=== PATIENT | female | born 1945 | race Caucasian/White ===

== ENCOUNTER → 2019-04-21 09:39 | Outpatient (CLI) | payer MEDICARE, SELFPAY ==
--- NOTE | ~2019-04-21 | XR_ITS ---
XR lumbar spine 6V w bending 04/21/2019 10:21 Indication: Radiculopathy Procedure: 7 views lumbar spine Comparison: 06/15/2015 Findings: There is levoscoliosis. There is disc narrowing at all lumbar levels. There is degenerative anterolisthesis at L4-5. There is moderate multilevel facet hypertrophy. Levoscoliosis measures 28 d egrees centered at L3-4. No acute fracture or traumatic malalignment. There is atherosclerosis. Impression: 1: Moderate lumbar spondylosis with worsening levoscoliosis. Reviewed, dictated and finalized at location A. Impression: 1: Moderate lumbar spondylosis with worsening levoscoliosis.
--- NOTE | ~2019-04-21 | CT_ITS ---
EXAMINATION: CT lumbar spine wo con DATE: 04/21/2019 10:21 INDICATION: Lumbar radiculopathy. TECHNIQUE: Computed tomography (CT) of the lumbar spine was performed without intravenous contrast. A utomated exposure control and iterative reconstruction technique were employed. The dose-length produ ct was 902.25 mGy-cm. COMPARISON: CT lumbar spine 10/22/2016 FINDINGS: There is 24 degrees levoscoliosis of lumbar spine. There is 3 mm anterolisthesis of L1 on L 2, 3 mm retrolisthesis of L2 on L3 and L3 on L4, and 3 mm anterolisthesis of L4 on L5. Vertebral body heights are normal. There is moderately decreased disc height at L1-L2, severely decreased disc heig ht at L2-L3 and L3-L4, moderately decreased disc height at L4-L5, and severely decreased disc height at L5-S1. The following disc levels are specifically discussed: L1-L2: The disc is bulging. There is severe bilateral facet joint osteoarthritis. There is moderate r ight and mild left neural foraminal stenosis. There is moderate central canal stenosis. L2-L3: The disc is bulging. There is severe right and moderate left facet joint osteoarthritis. There is severe right and mild left neural foraminal stenosis. There is mild central canal stenosis. L3-L4: The disc is bulging. There is severe bilateral facet joint osteoarthritis. There is moderate r ight and mild left neural foraminal stenosis. There is mild central canal stenosis. L4-L5: The disc is bulging. There is severe bilateral facet joint osteoarthritis. There is moderate r ight and mild left neural foraminal stenosis. There is moderate central canal stenosis. L5-S1: The disc is bulging. There is severe bilateral facet joint osteoarthritis. There is mild bilat eral neural foraminal stenosis. There is mild central canal stenosis. IMPRESSION: 1. Severe lumbar spondylosis, stable from 10/22/2016. 2. Lumbar levoscoliosis. Reviewed, dictated and finalized at location A.
== END ==
PROVIDERS: PCP Nurse Practitioner; Visit Provider Physician Assistant Medical
DX: M47.26 Other spondylosis with radiculopathy, lumbar region (principal)
CPT/HCPCS: 72114; 72131

== ENCOUNTER 2019-08-24 01:00 | Outpatient (CLI) | payer MEDICARE, SELFPAY ==
[2019-08-24 18:41] LABS: SARS-CoV-2 RNA PCR Negative
== END 2019-08-24 01:01 | disposition home or self-care (01) ==
LOC: ANHCOVIDDT 01:00
PROVIDERS: PCP Nurse Practitioner; Visit Provider Internal Medicine Cardiovascular Disease
DX: Z01.812 Encounter for preprocedural laboratory examination (principal); Z11.59 Encounter for screening for other viral diseases
CPT/HCPCS: 87635; C9803; U0003

== ENCOUNTER 2019-08-26 05:51 | Day surgery (SDC) | payer MEDICARE, SELFPAY ==
--- NOTE | 2019-08-26 07:45 | SUR.PREOP ---
ARRIVES AMBULATORY TO [facility] FOR SCHEDULED PACEMAKER GENERATOR CHANGE OUT W/ DR. THAKUR. A&OX3 ON ARRIVAL, DENIES PAIN OR SOB. ORIENTED TO ROOM, PLAN OF CARE, PROCEDURE, MODERATE SEDATION TO BE USED. QUESTIONS ANSWERED. VOICED UNDERSTANDING OF ALL. IV STARTED, LABS SENT, VS OBTAINED, CONSENT SIGNED, SKIN PREP TO R. UPPER CHEST COMPLETED. WILL CONTINUE TO MONITOR.
[2019-08-26 08:00] VITALS: BMI 33.7
[2019-08-26 08:20] VITALS: BP 121/96; PULSE 69; RESP 14; TEMP 36.9; O2SAT 100
--- NOTE | 2019-08-26 08:27 | PM.IMHP ---
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 Also has hypertension, hyperlipidemia and chronic pain. Her pulse generator has reached CRUZITO and she is here for an elective generator change. Review of Systems Constitutional: Constitutional: Denies body ache(s), Denies chills and Denies lethargy ENT: Denies nasal congestion Cardiovascular: Cardiovascular: Denies chest pain, Denies leg edema and Reports palpitations (occ little flutters) Respiratory: Respiratory: Denies cough, Denies dyspnea and Denies dyspnea on exertion Gastrointestinal: Gastrointestinal: Denies abdominal pain Musculoskeletal: Musculoskeletal: Reports back pain Integumentary/Breasts: Skin/Breast: Denies rash Neurologic: Denies confusion Psychiatric: Psychiatric: Reports anxiety [facility] Past Medical History Medical History (Updated 08/26/19 @ 08:29 by Judi Degroot MD) Cardiac pacemaker in situ 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, generator change 2019 Chronic low back pain Essential (primary) hypertension Hematuria, unspecified Mixed hyperlipidemia Synovial cyst of popliteal space [Solomon], left knee Urticaria, unspecified Surgical History Surgical History History of tubal ligation Social History Social History Smoking status: Never smoker Alcohol intake: never Meds Home Medications and Allergies Home Medications Medication Instructions Recorded Confirmed Type diclofenac sodium 50 mg 50 mg PO BID 01/14/19 History tablet,delayed release fluticasone propionate 50 2 spray NASAL DAILY #9.9 ml 01/14/19 Rx mcg/actuation nasal spray,suspension morphine 15 mg immediate release 15 mg PO Q12H PRN tablet 01/14/19 History tablet omeprazole 20 mg tablet,delayed 20 mg PO BID #180 tablet 01/14/19 Rx release lisinopril 20 1 tablet PO DAILY #90 tablet 07/02/19 Rx mg-hydrochlorothiazide 25 mg tablet atorvastatin 20 mg tablet See Rx Instructions .ROUTE 07/14/19 Rx .COMPLEX #90 tablet Allergies Allergy/AdvReac Type Severity Reaction Status Date / Time hydrocodone Allergy Unknown Verified 06/27/18 11:08 prednisone Allergy Unknown Verified 01/19/15 13:30 Exam Const: General: comfortable and no acute distress HENMT: Mouth: Yes moist mucous membranes Eyes: EOM: EOMs intact bilaterally Neck: Neck: supple Thyroid: thyroid normal Resp: Effort & Inspection: normal respiratory effort Auscultation: clear to auscultation bilaterally Cardio: Rhythm: regular rhythm Heart sounds: no murmurs GI: Inspection: non-distended GI Palp: Yes Soft to palpation and No Tenderness to palpation present (GI) Skin: General skin exam: normal color and no rashes or lesions noted (Pacer site well-healed, left sided implant) Neuro: Speech: normal speech Motor exam (neuro): Normal motor muscle tone present throughout Extrem: Right lower extremity: edema (miild bilat LE edema) Psych: Affect: Anxious affect present H&P: Results Labs Labs: Reviewed Assessment and Plan Assessment and plan (1) Cardiac pacemaker in situ: Code(s): Z95.0 - Presence of cardiac pacemaker Status: Acute Assessment and Plan: Medtronic pacemaker 2008. Pulse generator has reached CRUZITO. Intermittent complete heart block, ventricularly paces only about 2% of the time. Reviewed generator change with patient, risks and complications. Risks include those of conscious sedation such as breathing problems, as well as allergic reactions infections, bleeding, low but present risk of need for lead revision and the accompanying risks. Patient desires to proceed.
[2019-08-26 08:35] LABS: Basophils Absolute Auto 0.1 K/mm3 (0.0-0.1); Basophils Percent Auto 0.6 % (0.2-1.2); Eosinophils Absolute Auto 0.2 K/mm3 (0-0.3); Eosinophils Percent Auto 2.9 % (0-4.4); Hematocrit 39.8 % (37.0-47.0); Hemoglobin 12.9 g/dL (12.0-15.0); Immature Granulocyte Absolute 0.04 K/mm3 (0.00-0.031); Immature Granulocyte Percent A 0.5 % (0-0.5); Lymphocytes Absolute Auto 2.16 K/mm3 (0.9-3.2); Lymphocytes Percent Auto 27.5 % (18.3-44.2); Mean Corpuscular HGB Conc 32.4 g/dl (32-36); Mean Corpuscular Hemoglobin 29.8 pg (26-34); Mean Corpuscular Volume 91.9 fl (80-100); Mean Platelet Volume 9.7 fl (7.4-10.4); Monocytes Absolute Auto 0.5 K/mm3 (0.1-0.6); Monocytes Percent Auto 6.8 % (2.6-8.5); Neutrophils Absolute Auto 4.8 K/mm3 (1.3-6.7); Neutrophils Percent Auto 61.7 % (45.5-73.1); Platelet Count Result 229 k/mm3 (150-375); Red Blood Count 4.33 M/mm3 (4.2-5.4); Red Cell Distribution Width 13.2 % (11.5-14.5); White Blood Count 7.9 K/mm3 (4.5-10.0)
--- NOTE | 2019-08-26 08:42 | P.SEDATION_ITS ---
Moderate Sedation Note-Pt Data Patient Data Diagnosis: Pacemaker for intermittent complete heart block, generator at CRUZITO, here for elective generator change Present Complaint: Pulse generator at CRUZITO Procedure to be performed/Plan: Conscious sedation Generator change Allergies Allergy/AdvReac Type Severity Reaction Status Date / Time hydrocodone Allergy Unknown Verified 06/27/18 11:08 prednisone Allergy Unknown Verified 01/19/15 13:30 Home Medications Medication Instructions Recorded Confirmed Type diclofenac sodium 50 mg 50 mg PO BID 01/14/19 History tablet,delayed release fluticasone propionate 50 2 spray NASAL DAILY #9.9 ml 01/14/19 Rx mcg/actuation nasal spray,suspension morphine 15 mg immediate release 15 mg PO Q12H PRN tablet 01/14/19 History tablet omeprazole 20 mg tablet,delayed 20 mg PO BID #180 tablet 01/14/19 Rx release lisinopril 20 1 tablet PO DAILY #90 tablet 07/02/19 Rx mg-hydrochlorothiazide 25 mg tablet atorvastatin 20 mg tablet See Rx Instructions .ROUTE 07/14/19 Rx .COMPLEX #90 tablet Sedation/Anesthesia: No previous sedation/anesthesia problems (including family history). [facility] Past Medical History Medical History (Updated 08/26/19 @ 08:29 by Judi Degroot MD) Cardiac pacemaker in situ 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, generator change 2019 Chronic low back pain Essential (primary) hypertension Hematuria, unspecified Mixed hyperlipidemia Synovial cyst of popliteal space [Solomon], left knee Urticaria, unspecified Surgical History Surgical History History of tubal ligation Social History Social History Smoking status: Never smoker Alcohol intake: never Mod Sed Physical Exam Physical Exam Pre Procedural Exam: Normal: Appearance, Eyes, Ears, Nose, Neck, Throat, Airway, Lungs, Heart Size, Heart Rate, Heart Rhythm, Neuro Exam, Abdomen, Liver and Sk in (Pacer incision is well healed) and Variation: Extremities (Mild lower ex tremity edema) Hours since solid foods: 12 Hours since liquid intake: 12 Internal Medicine - PN: Obj Da Labs CBC & Chem 7: 08/26/19 08:18 08/26/19 08:18 ASA Classification/Sedation ASA Classification/Sedation ASA Class: II Risks: Risks, benefits and alternatives explained and patient/family accepted plan for sedation. Patient re-evaluated immediately prior to sedation.
[2019-08-26 08:46] LABS: Prothrombin Time 12.4 Seconds (11.1-14.7)
[2019-08-26 08:53] LABS: Blood Urea Nitrogen 16 mg/dL (7-17); Carbon Dioxide 28 mmol/L (22-30); Chloride 105 mmol/L (98-107); Estimated Glomerular Filt Rate 55; Glucose 107 mg/dL (65-105); Potassium 3.7 mmol/L (3.4-5.0); Sodium 140 mmol/L (137-145)
--- NOTE | 2019-08-26 10:14 | ECG_ITS ---
Measurements Intervals [place] Rate: 64 P: 50 AR: 169 QRS: 1 QRSD: 90 T: 29 QT: 376 QTc: 389 Interpretive Statements SINUS RHYTHM LOW QRS VOLTAGE IN PRECORDIAL LEADS BORDERLINE T WAVE ABNORMALITY- ANTERIOR LEADS BORDERLINE ECG Electronically Signed On 08-26-2019 13:42:55 CDT by Johnathon Kirby D.O.
--- NOTE | 2019-08-26 10:20 | SUR.PHASEII ---
BEGIN PHASE II RECOVERY. RETURNS TO DEPLOYMENT TECHNICIAN 5 S/P PPM GENERATOR CHANGE W/ DR. THAKUR. PLACED ON MONITOR, REPOSITIONED FOR COMFORT. AWAKE, DROWSY. DENIES PAIN AT THIS TIME. GENERATOR CHANGE LOCATION R. UPPER CHEST. AQUACELL DRESSING C/D/I TO SITE. NO REDNESS, SWELLING OR BLEEDING NOTED. R. RADIAL PULSE STRONG. SENSATION AND MOVEMENT TO R. HAND WNL. MONITOR SR 60'S W/ OCCASIONAL APACING. VSS. WILL CONTINUE TO MONITOR.
--- NOTE | 2019-08-26 10:22 | P.OP_ITS ---
Procedure Note - Detailed Date of procedure: 08/26/19 Pre-op diagnosis: CRUZITO Pacemaker generator at CRUZITO Post-op diagnosis: same Procedure performed: Conscious sedation generator change Description of procedure: PROCEDURE: Conscious sedation Generator change UNDERLYING RHYTHM: NSR CONSCIOUS SEDATION: Assessment: The patient has no history of anesthesia problems. The oropharynx is clear. The patient was deemed to be a good candidate for conscious sedation. The patient had continuous hemodynamic and oximetric monitoring during the procedure. Start time: 935 Completion time: 10 10 Total conscious sedation time: 34 minutes Medications: Versed 3 mg, fentanyl 50 mcg IV push Trained observer: Sajan Ly RN Outcome: The patient tolerated the procedure well with no complications. PROCEDURE: After informed consent, the patient is brought to the microbiology lab technician and the right prepectoral area was prepped and draped in usual fashion. The patient was given a prophylactic antibiotic intravenously with. After conscious sedation as described above, the area was anesthetized with 1% lidocaine. A skin incision is made with the Plasma Blade and carried down to the pacing capsule which was also incised. Hemostasis is obtained using the Plasma Blade. The lead/s was/were freed from the underlying capsule and the pulse generator was delivered from the pocket. The lead/s was/were disconnected from the existing device and reconnected to the new device. A gentle tug could not remove it/them. The device and lead/s was/were interrogated and found to be functioning appropriately. The area was copiously irrigated with antibiotic- containing solution. The device was replaced in the pocket. The subcutaneous tissues were closed in a two-layer fashion with interrupted 2 0 Vicryl sutures and the skin was closed in a continuous fashion using 4 0 Vicryl. The area was cleansed, an Aquacel dressing applied. The patient tolerated the procedure well with no complications. Estimated blood loss was negligible. DEVICE INFORMATION: New pulse generator: Medtronic Piedra XT DR PERALTA, [id number], Serial # [id number] Existing Right atrial lead: Medtronic model # 059737, Serial # [id number] Existing right ventricular lead: Medtronic model # 5076-52, Serial # [id number] Explanted device: Medtronic ADDR01, Serial #[id number] THRESHOLD INFORMATION: Right atrial lead: P wave sensing 1.4 mV, impedance 380 Ohms, threshold 0.75 at 0.4 msec Right ventriclar lead: R wave sensing 3.8 mV, impedance 532 ohms, threshold 0.75 V at 0.4 msec PROGRAMMED PARAMETERS: AAI <=> DDD Implants: New pulse generator: Medtronic Piedra XT DR MRI, [id number], Serial # [id number] Existing Right atrial lead: Medtronic model # 476195, Serial # [id number] Existing right ventricular lead: Medtronic model # 5076-52, Serial # [id number] Anesthesia: local (and conscious sedation) Surgeon: Judi Degroot MD Estimated blood loss (mL): 10 Drains: No Packing: No Pathology: none sent Complications: No immediate complications Condition: stable Disposition: observation Findings: New pacemaker is MRI compatible.
[2019-08-26 10:25] VITALS: BP 117/59; PULSE 67; RESP 14; TEMP 36.6; O2SAT 99
[2019-08-26 10:40] VITALS: BP 107/69; PULSE 68; RESP 14; O2SAT 99
[2019-08-26 10:55] VITALS: BP 113/64; PULSE 62; RESP 14; O2SAT 99
[2019-08-26 11:10] VITALS: BP 104/69; PULSE 61; RESP 14; O2SAT 98
[2019-08-26 11:40] VITALS: BP 103/66; PULSE 65; RESP 16; O2SAT 99
--- NOTE | 2019-08-26 12:37 | SUR.PHASEII ---
DISCHARGE INSTRUCTIONS AND FOLLOW UP CARE GIVEN AND REVIEWED W/ PT. QUESTIONS ANSWERED. VOICES UNDERSTANDING OF ALL INSTRUCTIONS.
--- NOTE | 2019-08-26 12:40 | SUR.PHASEII ---
END PHASE II RECOVERY. DISCHARGED HOME, OUT VIA WC TO FRIEND'S WAITING CAR WITH ALL PERSONAL BELONGINGS AND DISCHARGE INSTRUCTIONS, NEW GENERATOR BOOKLET AND INFORMATION. R. UPPER CHEST DRESSING C/D/I. SITE WITHOUT REDNESS, SWELLING OR BLEEDING. VOICES NO C/O. NO DISTRESS NOTED.
== END 2019-08-26 12:40 | disposition home or self-care (01) ==
PROVIDERS: PCP Nurse Practitioner; Visit Provider Internal Medicine Cardiovascular Disease
PROC: 0JPT0PZ Removal of Cardiac Rhythm Related Device from Trunk Subcutaneous Tissue and Fascia, Open Approach (ICD-10-PCS; CPT 33228; principal; 2019-08-26 08:30)
DX: Z45.010 Encounter for checking and testing of cardiac pacemaker pulse generator [battery] (principal); I44.2 Atrioventricular block, complete; I10 Essential (primary) hypertension; E78.2 Mixed hyperlipidemia
CPT/HCPCS: 33213; 36415; 80048; 85025; 85610; C1785; J0690; J2250; J3010; J7040

== ENCOUNTER 2019-12-25 13:02 | Outpatient (NON) | payer MEDICARE, SELFPAY ==
[2019-12-26 13:19] LABS: SARS-CoV-2 RNA PCR Negative
== END 2019-12-25 13:03 ==
LOC: ANHCOVIDDT 13:05
PROVIDERS: PCP Internal Medicine; Visit Provider Internal Medicine
DX: Z20.828 Contact with and (suspected) exposure to other viral communicable diseases (principal); R68.89 Other general symptoms and signs
CPT/HCPCS: 87635; C9803; U0003

== ENCOUNTER → 2020-04-07 09:29 | Outpatient (CLI) | payer MEDICARE, SELFPAY ==
--- NOTE | ~2020-04-07 | CT_ITS ---
EXAMINATION: CT lumbar spine wo [facility] EXAM DATE: 04/07/2020 09:56 INDICATION: Lumbar radiculopathy TECHNIQUE: Spiral CT of the lumbar spine was performed without contrast. Axial, coronal and sagittal images were reviewed. The dose-length product (DLP) for this examination was 782.95 mGy-cm. The e xposure was tailored according to patient size (auto mA exposure control), and iterative reconstructi on (ASIR) was used as additional dose reduction technique. Comparison is made to prior examination fr 04/21/2019. FINDINGS: There is moderate mid lumbar levoscoliosis. There is about 1 cm right lateral subluxation L 2 on L3 and about 1 cm left lateral subluxation L3 on L4. There is 3 mm anterolisthesis L1 on L2 and L4 on L5, 2 mm retrolisthesis L3 on L4 and L4 on L5. There is severe disc disease L2-3 and L3-4, mode rate to severe at L4-5, moderate at L1-2 and L5-S1. There is no spondylolysis. There are no acute fra ctures identified. Sacroiliac joints are unremarkable. Partially imaged right renal fluid density les ion statistically most likely cyst. Mild sigmoid diverticulosis. Level by level evaluation: T12-L1: There is a mild diffuse disc bulge. Facet arthropathy: Moderate left, mild to moderate right. Neural foraminal stenosis: Mild left. Central canal stenosis: Mild. L1-L2: There is a moderate diffuse disc bulge. Facet arthropathy: Moderate to severe bilateral. Neural foraminal stenosis: Moderate left, mild to moderate right. Central canal stenosis: Moderate. L2-L3: There is a moderate to large diffuse disc bulge. Facet arthropathy: Severe right, moderate to severe left. Neural foraminal stenosis: Moderate to severe right, mild left. Central canal stenosis: Moderate. L3-L4: There is a moderate diffuse disc bulge. Facet arthropathy: Moderate to severe bilateral. Neural foraminal stenosis: Moderate right, mild to moderate left. Central canal stenosis: Mild to moderate. L4-L5: There is a moderate diffuse disc bulge. Facet arthropathy: Severe bilateral. . Ligamentum flavum enlargement. Neural foraminal stenosis: Moderate bilateral. Central canal stenosis: Moderate to severe. L5-S1: There is a moderate diffuse disc bulge. Facet arthropathy: Severe left, moderate right. Neural foraminal stenosis: Mild to moderate left, mild right. Central canal stenosis: Mild. Difficult to appreciate any significant change compared to last year. IMPRESSION: 1. Moderate lumbar levoscoliosis. 2. Advanced lumbar spondylosis. Reviewed, dictated and finalized at location B. CIATE PROPERTY MANAGER
== END ==
PROVIDERS: PCP Internal Medicine; Visit Provider Nurse Practitioner Adult Health
DX: M47.26 Other spondylosis with radiculopathy, lumbar region (principal)
CPT/HCPCS: 72131

== ENCOUNTER 2020-09-08 09:37 | Outpatient (CLI) | payer MEDICARE, SELFPAY ==
[2020-09-08 16:38] LABS: Alanine Aminotransferase 19 U/L (4-35); Albumin Level 3.8 g/dL (3.5-5.1); Alkaline Phosphatase 88 U/L (38-126); Anion Gap 7 mmol/L (8-16); Aspartate Amino Transferase 26 U/L (14-36); Bilirubin,Total 0.4 mg/dL (0.2-1.3); Blood Urea Nitrogen 16 mg/dL (7-17); Calcium 9.1 mg/dL (8.4-10.2); Carbon Dioxide 30 mmol/L (22-30); Chloride 105 mmol/L (98-107); Cholesterol 144 mg/dL (0-200); Estimated Glomerular Filt Rate 54; Glucose 104 mg/dL (65-110); HDL Direct 31 mg/dL; Potassium 4.2 mmol/L (3.4-5.0); Sodium 142 mmol/L (137-145); Triglycerides 144 mg/dL (<150)
[2020-09-08 16:49] LABS: LDL Cholesterol Direct 78 mg/dL
== END 2020-09-08 09:38 | disposition home or self-care (01) ==
LOC: ANHWCLAB 09:42
PROVIDERS: PCP Internal Medicine; Visit Provider Internal Medicine
DX: E78.5 Hyperlipidemia, unspecified (principal); I10 Essential (primary) hypertension; Z79.899 Other long term (current) drug therapy
CPT/HCPCS: 36415; 80053; 80061

== ENCOUNTER → 2020-09-15 09:34 | Outpatient (REF) | payer MEDICARE, SELFPAY | LOC: ANHLAB 09:34 | PROVIDERS: PCP Internal Medicine; Visit Provider Nurse Practitioner | DX: C44.1192 Basal cell carcinoma of skin of left lower eyelid, including canthus (principal) | CPT/HCPCS: 88305 ==

== ENCOUNTER → 2021-01-16 10:19 | Outpatient (REF) | payer MEDICARE, SELFPAY | LOC: ANHLAB 10:19 | PROVIDERS: PCP Internal Medicine; Visit Provider Nurse Practitioner | DX: C44.1192 Basal cell carcinoma of skin of left lower eyelid, including canthus (principal) | CPT/HCPCS: 88305; 88331 ==

== ENCOUNTER 2021-04-27 11:54 | Outpatient (CLI) | payer MEDICARE, SELFPAY ==
[2021-04-27 16:19] LABS: Alanine Aminotransferase 17 U/L (4-35); Albumin Level 4.1 g/dL (3.5-5.1); Alkaline Phosphatase 73 U/L (38-126); Anion Gap 6 mmol/L (8-16); Aspartate Amino Transferase 54 U/L (14-36); Bilirubin,Total 0.3 mg/dL (0.2-1.3); Blood Urea Nitrogen 17 mg/dL (7-17); Calcium 8.9 mg/dL (8.4-10.2); Carbon Dioxide 29 mmol/L (22-30); Chloride 102 mmol/L (98-107); Cholesterol 166 mg/dL (0-200); Estimated Glomerular Filt Rate > 60; Glucose 104 mg/dL (65-110); HDL Direct 28 mg/dL; Potassium 4.1 mmol/L (3.4-5.0); Sodium 137 mmol/L (137-145); Triglycerides 225 mg/dL (<150)
[2021-04-27 16:29] LABS: LDL Cholesterol Direct 84 mg/dL
== END 2021-04-27 11:55 | disposition home or self-care (01) ==
PROVIDERS: PCP Internal Medicine; Visit Provider Nurse Practitioner
DX: E78.5 Hyperlipidemia, unspecified (principal)
CPT/HCPCS: 36415; 80053; 80061

== ENCOUNTER → 2021-05-08 13:59 | Outpatient (CLI) | payer MEDICARE, SELFPAY ==
--- NOTE | ~2021-05-08 | CT_ITS ---
EXAMINATION: CT lumbar spine wo con DATE: 05/08/2021 14:30 INDICATION: Lumbar radiculopathy. TECHNIQUE: Computed tomography (CT) of the lumbar spine was performed without intravenous contrast. A utomated exposure control and iterative reconstruction technique were employed. The dose-length produ ct was 845.61 mGy-cm. COMPARISON: CT lumbar spine 04/07/2020 FINDINGS: There is 25 degrees levoscoliosis of lumbar spine. There is 3 mm anterolisthesis of L1 on L 2, 3 mm retrolisthesis of L2 on L3 and L3 on L4, and 3 mm anterolisthesis of L4 on L5 and L5 on S1. V ertebral body heights are normal. There is moderately decreased disc height at L1-L2, severely decrea sed disc height at L2-L3 and L3-L4, moderately decreased disc height at L4-L5, and severely decreased disc height at L5-S1 with endplate remodeling. The following disc levels are specifically discussed: L1-L2: The disc is bulging. There is severe bilateral facet joint osteoarthritis. There is mild bilat eral neural foraminal stenosis. There is mild central canal stenosis. L2-L3: The disc is bulging. There is severe bilateral facet joint osteoarthritis. There is moderate r ight and mild left neural foraminal stenosis. There is mild central canal stenosis. L3-L4: The disc is bulging. There is severe bilateral facet joint osteoarthritis. There is moderate r ight and mild left neural foraminal stenosis. There is mild central canal stenosis. L4-L5: The disc is bulging. There is severe bilateral facet joint osteoarthritis. There is mild bilat eral neural foraminal stenosis. There is mild central canal stenosis. L5-S1: The disc is bulging. There is severe bilateral facet joint osteoarthritis. There is mild bilat eral neural foraminal stenosis. There is mild central canal stenosis. IMPRESSION: 1. Severe lumbar spondylosis, stable from 04/07/2020. 2. Lumbar levoscoliosis. Reviewed, dictated and finalized at location A.
== END ==
PROVIDERS: Visit Provider Nurse Practitioner Adult Health
DX: M47.26 Other spondylosis with radiculopathy, lumbar region (principal)
CPT/HCPCS: 72131

== ENCOUNTER → 2021-10-05 11:37 | Outpatient (CLI) | payer MEDICARE, SELFPAY ==
--- NOTE | ~2021-10-05 | XR_ITS ---
EXAMINATION: XR hip BI 2V w AP pelvis DATE: 10/05/2021 11:57 INDICATION: Bilateral hip pain TECHNIQUE: AP view the pelvis and two views of each hip were obtained. COMPARISON: None. FINDINGS: Bone alignment is normal. There is no fracture. There is mild osteoarthritis of the hips. P hleboliths are noted in the pelvis. IMPRESSION: 1. Mild osteoarthritis of the hips. Reviewed, dictated and finalized at location B.
== END ==
PROVIDERS: PCP Internal Medicine; Visit Provider Nurse Practitioner Family
DX: M16.0 Bilateral primary osteoarthritis of hip (principal)
CPT/HCPCS: 73521

== ENCOUNTER 2023-01-28 13:22 | Outpatient (CLI) | payer MEDICARE, SELFPAY ==
--- NOTE | 2023-01-28 14:11 | ECG_ITS ---
Measurements Intervals [place] Rate: 78 P: 44 ID: [id number] QRS: -21 QRSD: 94 T: 67 QT: 341 QTc: 391 Interpretive Statements SINUS RHYTHM LOW QRS VOLTAGE IN PRECORDIAL LEADS [QRS DEFLECTION < 1.0 mV IN CHEST LEADS] ABNORMAL ECG COMPARED TO ECG 08/26/2019 12:22:32 NO SIGNIFICANT CHANGES Electronically Signed On 01-28-2023 17:25:11 TISSUE RECOVERY TECHNICIAN by Khurram Finley M.D.
== END 2023-01-28 13:23 | disposition home or self-care (01) ==
LOC: ANHLAB 13:46
PROVIDERS: PCP Nurse Practitioner; Visit Provider Anesthesiology
DX: K42.9 Umbilical hernia without obstruction or gangrene (principal); I10 Essential (primary) hypertension; Z01.818 Encounter for other preprocedural examination; R94.31 Abnormal electrocardiogram [ECG] [EKG]
CPT/HCPCS: 36415; 86850; 86900; 86901; 93005

== ENCOUNTER 2023-01-29 02:06 | Day surgery (SDC) | payer MEDICARE, SELFPAY ==
[2023-01-25 10:40] VITALS: BMI 33.7
--- NOTE | 2023-01-25 10:58 | PC.NURSE ---
PRE-OP INSTRUCTIONS, PLEASE READ CAREFULLY Report to the Outpatient Waiting Room, entrance under the green pavilion located off [facility], at time _0730_ on date _01/29/23_. Planned Procedure Time: _0930_. Time changes happen often and if your time is changed the preop area will call you the afternoon before. - You and your visitor will be asked to self-screen and do not enter if you have any COVID symptoms. - A mask is optional within the hospital at this time. Patients may have clear liquids (water, carbonated beverages, clear teas, apple juice) until 3 hours prior to surgery (0630 AM) with a maximum of 20 ounces. - No food from midnight until time of surgery Take the following medications with a SIP of water the morning of surgery: _NONE__ DO NOT STOP ANY OF YOUR OTHER PRESCRIPTION MEDICATIONS PRIOR TO SURGERY ?EXCEPT THE FOLLOWING Medications to discontinue _DICLOFENAC PER DR. VARGAS'S INSTRUCTIONS_ Date to take last dose Please no make-up, nail kyrgyz, hairspray, perfume, deodorant, or body powder the day of surgery. No jewelry (including any body piercings) or valuables the day of surgery, leave them at home. Please take a shower or bath the night before, or the morning of, surgery with an antibacterial soap (HIBICLENS). Wear comfortable, loose fitting clothing. - Jewelry must be removed prior to entering the operating room. Rings and piercings that are not removed may be cut off. - The hospital will not accept responsibility for valuables. - Please leave all valuables, including medications, at home the day of surgery. If you are going home after surgery, a licensed pickup driver must drive you home. - NO public transportation without another adult if you receive anesthesia. - We recommend that an adult stay with you for 24 hours following discharge. - We also recommend that you do not drive, make important decision, drink alcoholic beverages, or take any drugs that were not prescribed by your health care provider for at least 24 hours after your discharge time. Follow any additional instructions given to you from your surgeon. If you or anyone in your household have experienced Covid symptoms in the past week, please notify your surgeon or the nurse liaison at the phone number below for possible testing. Telephone instructions given to _PATIENT_and asked if any additional questions and then verbalized understanding. Patient advised to call surgeon office or pre surgery nurse liaison [phone] if any additional questions.
[2023-01-29] VITALS (12 sets, daily range): BP systolic 125–136; BP diastolic 61–78; PULSE 71–84; RESP 12–22; TEMP 35.7–36.9; O2SAT 93–100
[2023-01-29] MEDS: ACETAMINOPHEN 500 MG TABLET 1000 MG PO (08:15)
[2023-01-29] MEDS: KETOROLAC 15 MG/ML VIAL (*BKC) IV PUSH (08:15)
[2023-01-29] MEDS: LACTATED RINGERS 1,000 ML 30 ML IV CONT ×2 (08:15→11:18)
--- NOTE | 2023-01-29 09:07 | WPDANESEPPF ---
Anes - Initial Pre Proc Eval Procedure: Operation Date: 01/29/23 09:30 Proposed Procedures p Laparoscopic Umbilical Hernia Repair with Mesh, Davinci Assisted - Harrison Galvan DO Date/Time: 01/29/23 09:07 Surgeon: Harrison Galvan DO Pre Op Diagnosis: umbilical hernia Patient Data Age: 77 Gender: F Height: 1.6 m Weight: 87.6 kg Last Vital Signs Temp 35.7 C L 01/29/23 08:22 Pulse 71 01/29/23 08:22 Resp 14 01/29/23 08:22 BP 126/71 01/29/23 08:22 Pulse Ox 95 01/29/23 08:22 O2 Del Method Room Air 01/29/23 08:22 Allergies Allergy/AdvReac Type Severity Reaction Status Date / Time prednisone Allergy Unknown Unknown Verified 01/29/23 08:28 nitrofurantoin AdvReac Severe Abdominal Verified 01/29/23 08:28 Pain Home Medications Medication Instructions Recorded Confirmed Type atorvastatin 40 mg tablet 40 mg PO DAILY #90 tabs 01/30/22 01/25/23 Rx lisinopril 20 See Rx Instructions .Route 03/22/22 01/25/23 Rx mg-hydrochlorothiazide 25 mg tablet .COMPLEX #90 tabs diclofenac sodium 50 mg See Rx Instructions .Route 05/01/22 01/25/23 Rx tablet,delayed release .COMPLEX #180 tabs omeprazole 20 mg tablet,delayed 20 mg PO BID #180 tabs 09/18/22 01/25/23 Rx release fluticasone propionate 50 2 spray intranasal DAILY PRN 01/25/23 01/25/23 History mcg/actuation nasal Congestion spray,suspension Patient hx anesthesia problems: none Family hx anesthesia problems: none Results Review: All pre-operative results and documents have been reviewed as part of the pre-operative evaluation. 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, generator change 2019 Chronic low back pain Essential (primary) hypertension Hematuria, unspecified Mixed hyperlipidemia Synovial cyst of popliteal space [Solomon], left knee Urticaria, unspecified Surgical History Surgical History History of tubal ligation S/P placement of cardiac pacemaker Family History Family History Mother Family history of malignant neoplasm of breast in first degree relative Father Family history of heart disease in male family member before age 55 Social History Social History Smoking status: Never smoker Second hand tobacco smoke exposure: No Alcohol intake: never Substance use: never Substance use type: does not use Living arrangements: alone Spiritual care concerns: No Anes - Eval Final PreProcedure Day of Procedure 01/29/23 09:07 Patient weight: obese Heart: regular rate and rhythm Lungs: clear to auscultation Airway: Mallampati scale class III Neurological: alert and oriented Last oral intake: >/= 8 hours ASA classification: III Emergent: no Anesthetic plan: proceed Anesthesia type and monitoring: general ETT and standard monitoring Results Review: All pre-operative results and documents have been reviewed as part of the pre-operative evaluation. Informed Consent: The patient's anesthetic plan and its attendant risks and benefits were discussed with the patient/family/POA. Questions were solicited and answers provided to the satisfaction of the patient/family/POA.
--- NOTE | 2023-01-29 09:33 | PM.IMHP ---
H&P: HPI History of Present Illness Date/Time: 01/29/23 09:33 Chief Complaint: Umbilical hernia Narrative: This is a 77-year-old woman who presents for umbilical hernia repair. She denies any changes since last seen in the office. Review of Systems Review of Systems: All systems reviewed & are unremarkable except as noted in HPI and below Constitutional: Constitutional: Denies chills, Denies fever(s), Denies headache(s) and Denies weight loss Eyes: Eyes: Denies change in vision ENT: Denies dizziness, Denies headache(s), Denies neck mass and Denies throat swelling Cardiovascular: Cardiovascular: Denies chest pain, Denies lightheadedness and Denies dyspnea Respiratory: Respiratory: Denies cough, Denies dyspnea and Denies wheezing Gastrointestinal: Gastrointestinal: Denies abdominal pain, Denies change in bowel habits, Denies nausea and Denies vomiting Genitourinary: Genitourinary: Denies hematuria and Denies dysuria Musculoskeletal: Musculoskeletal: Reports as per HPI Integumentary/Breasts: Skin/Breast: Reports as per HPI Neurologic: Denies dizziness and Denies headache(s) Allergic/Immunologic: Allergic/Immunologic: Denies throat swelling and Denies wheezing PMFSH Past Medical History Medical History Cardiac pacemaker in situ 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, generator change 2019 Chronic low back pain Essential (primary) hypertension Hematuria, unspecified Mixed hyperlipidemia Synovial cyst of popliteal space [Solomon], left knee Urticaria, unspecified Surgical History Surgical History History of tubal ligation S/P placement of cardiac pacemaker Family History Family History Mother Family history of malignant neoplasm of breast in first degree relative Father Family history of heart disease in male family member before age 55 Social History Social History Smoking status: Never smoker Second hand tobacco smoke exposure: No Alcohol intake: never Substance use: never Substance use type: does not use Living arrangements: alone Spiritual care concerns: No Meds Home Medications and Allergies Home Medications Medication Instructions Recorded Confirmed Type atorvastatin 40 mg tablet 40 mg PO DAILY #90 tabs 01/30/22 01/25/23 Rx lisinopril 20 See Rx Instructions .Route 03/22/22 01/25/23 Rx mg-hydrochlorothiazide 25 mg tablet .COMPLEX #90 tabs diclofenac sodium 50 mg See Rx Instructions .Route 05/01/22 01/25/23 Rx tablet,delayed release .COMPLEX #180 tabs omeprazole 20 mg tablet,delayed 20 mg PO BID #180 tabs 09/18/22 01/25/23 Rx release fluticasone propionate 50 2 spray intranasal DAILY PRN 01/25/23 01/25/23 History mcg/actuation nasal Congestion spray,suspension Allergies Allergy/AdvReac Type Severity Reaction Status Date / Time prednisone Allergy Unknown Unknown Verified 01/29/23 08:28 nitrofurantoin AdvReac Severe Abdominal Verified 01/29/23 08:28 Pain Vital Signs Vital Signs - 24 hr 01/29/23 08:22 Temperature 35.7 C L Pulse Rate 71 Respiratory Rate 14 Blood Pressure 126/71 Pulse Oximetry 95 Oxygen Delivery Room Air Exam Const: General: no acute distress and alert Orientation/consciousness: patient oriented x3 HENMT: Head: normocephalic and atraumatic Ears: hearing grossly normal bilaterally Face/Nose/Sinus: Normal nares present Mouth: Yes Normal oral and palatal mucosa present Eyes: Periorbital: periorbital findings normal Sclera: sclerae normal EOM: EOMs intact bilaterally Neck: Neck: normal visual inspection, no lymphadenopathy and trachea midline Chest: Chest palpation & inspection: normal inspection of the chest Resp: Effort & Inspection: normal respiratory effort
--- NOTE | 2023-01-29 09:35 | WPDHPUPDATE1 ---
History and Physical Update Update Date/Time: 01/29/23 09:35 History and Physical has been reviewed, including an updated exam of the patient. There are NO changes in the patient's condition. Risks, benefits, and alternatives have been discussed and questions answered. Patient agrees to proceed with procedure.
[2023-01-29] MEDS: ceFAZolin 2 GM/D5W 50 ML 2 GM/50 ML BAG IVPB (09:54)
[2023-01-29] MEDS: BUPIVACAINE/EPINEPHRINE 0.5% 50 ML VIAL 30 ML INFILTRATE (09:54)
--- NOTE | 2023-01-29 11:11 | W.PM.PROC2 ---
Procedure Note - Detailed Date of Procedure 01/29/23 Pre-op Diagnosis umbilical hernia Post-op Diagnosis Same (2 cm umbilical hernia) Procedure Performed Laparoscopic 2 cm umbilical hernia repair with mesh, da Missael assisted Surgeon Harrison Galvan DO Anesthesia General and Local (0.5% bupivacaine with epinephrine) Indications This is a 77-year-old woman presented with an umbilical bulge that she noticed about 1.5 years ago. This has gradually increased in size. She has some discomfort pressing on the area. A 1-2 cm umbilical hernia was identified on physical exam. Discussions were made the patient about treatment options and decision to proceed with a robotic assisted laparoscopic hernia repair with mesh. Findings Laparoscopic umbilical hernia repair was performed. The patient was found to have a 2 cm umbilical hernia defect. The hernia sac and preperitoneal fat was excised around the hernia defect to adequately visualize the fascial edges. The hernia was closed using 0 Stratafix running absorbable suture. Performed a robotic intraperitoneal onlay mesh technique to secure the mesh to the abdominal wall. A Ventralight ST 15 cm x 10 cm mesh was chosen and secured to the abdominal wall using 2 0 V lock running absorbable suture. No specimens were obtained for pathology. Description of Procedure Procedure as well as risks, benefits, and alternatives were discussed with the patient. Written consent was obtained and placed in chart prior to procedure. Patient was brought back to surgical suite. She was placed supine on operating table. Time-out was done to confirm patient and procedure. She was then intubated by the anesthesia department. A bump was placed under her left hip, and the bed was flexed slightly to extend the space between her costal margin and iliac crest. Her abdomen was prepped and draped in sterile fashion using chlorhexidine prep. A 5 millimeter incision was made in the left upper quadrant, and a 5 millimeter Optiview trocar was advanced through the abdominal layers under direct visualization. Once inside the abdominal cavity, carbon dioxide insufflation was used to create a pneumoperitoneum. Her abdomen was inspected. An 8 millimeter incision was made in the left lower quadrant, and an 8 millimeter robotic trocar was placed under direct visualization. Another 8 millimeter incision was made in the left lateral abdomen, and an 8 millimeter robotic trocar was placed under direct visualization. 0.5% bupivacaine with epinephrine was infiltrated around each port site. The 5 millimeter port was removed, and an 8 mm robotic trocar was placed under direct visualization. The robotic arms were brought up to the patient's bedside and secured to the ports. The camera and instruments were inserted, and I then moved over to the robotic console and took control of the camera and instruments. After careful thorough inspection of the abdominal cavity, I began my dissection at the hernia. The hernia sac was excised using scissors with electrocautery. I then measured the hernia size. The hernia measured 2 cm. The fascia was closed using an 0-Stratafix running suture in a vertical fashion. A Ventralight ST 15 cm x 10 cm mesh was then placed within the abdominal cavity. This was oriented vertically with the mesh centered on the hernia defect. The mesh was then secured to the abdominal wall at the center in 4 corners using 3-0 Vicryl simple interrupted sutures. The entire perimeter of the mesh was then secured to the abdominal wall using 2 0 V lock running absorbable suture. The repair was inspected, and one final inspection was made around the abdominal cavity. The robotic instruments were then removed, and the robotic arms were disengaged from the trocars. The ports were then removed under direct visualization, the camera was removed, and the pneumoperitoneum was released. The skin of the incisions was then approximated using 4-0 Monocryl subc
[2023-01-29] MEDS: fentaNYL CITRATE INJ (*CRX) 100 MCG/2 ML VIAL 25 MCG IV PUSH ×4 (11:39→12:45)
[2023-01-29] MEDS: ONDANSETRON INJ 4 MG/2 ML VIAL IV PUSH (12:30)
[2023-01-29] MEDS: SCOPOLAMINE 1 MG PATCH 1 PATCH TRANSDERM (13:21)
[2023-01-29] MEDS: oxyCODONE HCL (*CRX) 5 MG TAB IR PO (13:25)
[2023-01-29] MEDS: diphenhydrAMINE HCl INJ 50 MG/ML VIAL 12.5 MG IV PUSH (13:26)
== END 2023-01-29 14:30 | disposition home or self-care (01) ==
PROVIDERS: PCP Nurse Practitioner; Visit Provider Surgery
PROC: (CPT 49591; principal; 2023-01-29 09:30)
DX: K42.9 Umbilical hernia without obstruction or gangrene (principal); I10 Essential (primary) hypertension; E78.2 Mixed hyperlipidemia; Z95.0 Presence of cardiac pacemaker; E66.9 Obesity, unspecified; Z68.34 Body mass index [BMI] 34.0-34.9, adult
CPT/HCPCS: 49591; S2900; 36415; 86850; 86900; 86901; A9270; C1781; J0690; J1100; J1200; J1885; J2405; J2704; J3010; J7120

== ENCOUNTER 2023-07-12 15:12 | Outpatient (CLI) | payer MEDICARE, SELFPAY ==
--- NOTE | ~2023-07-12 | XR_ITS ---
EXAMINATION: XR chest 2V 07/12/2023 15:38 INDICATION: Cough PROCEDURE: 2 view chest COMPARISON: Comparison to multiple prior studies sequentially, with oldest reviewed study dated 09/2008. FINDINGS: The lungs are clear. The cardiomediastinal silhouette is within normal limits. There are no pleural effusions. There is no pneumothorax suspected. Pacemaker leads are in expected position. IMPRESSION: 1: NO ACUTE CARDIOPULMONARY DISEASE. Reviewed, dictated and finalized at location B.
== END 2023-07-12 15:13 | disposition home or self-care (01) ==
PROVIDERS: PCP Nurse Practitioner; Visit Provider Nurse Practitioner
DX: R05.9 Cough, unspecified (principal)
CPT/HCPCS: 71046

== ENCOUNTER 2023-08-28 14:33 | Outpatient (CLI) | payer MEDICARE, SELFPAY ==
--- NOTE | ~2023-08-28 | US_ITS ---
EXAMINATION:US venous doppler LE BI INDICATION:Localized edema TECHNIQUE: Multiple grayscale, color flow and Doppler images of the right and left lower extremity de ep venous systems were obtained and reviewed. COMPARISON:No prior studies for comparison. FINDINGS: The common femoral, superficial femoral and popliteal veins demonstrate normal respiratory variation, augmentation and compressibility. Color flow is also seen within the posterior tibial, pe roneal, greater saphenous and profunda veins. IMPRESSION: 1: No lower extremity deep venous thrombosis. Reviewed, dictated and finalized at location B.
== END 2023-08-28 14:34 | disposition home or self-care (01) ==
PROVIDERS: PCP Nurse Practitioner Family; Visit Provider Nurse Practitioner Family
DX: R60.0 Localized edema (principal)
CPT/HCPCS: 93970

== ENCOUNTER 2023-09-26 14:21 | Outpatient (CLI) | payer MEDICARE, SELFPAY ==
--- NOTE | ~2023-09-26 | CT_ITS ---
EXAMINATION: CT lumbar spine wo con DATE: 09/26/2023 14:55 INDICATION: Radiculopathy, lumbar region. TECHNIQUE: Computed tomography (CT) of the lumbar spine was performed without intravenous contrast. A utomated exposure control and iterative reconstruction technique were employed. The dose-length produ ct was 1068.35 mGy-cm. COMPARISON: CT lumbar spine 05/08/2021 FINDINGS: There is 26 degrees levoscoliosis of lumbar spine. There is 3 mm retrolisthesis of L1 on L2 , 3 mm retrolisthesis of L2 on L3 and L3 and L4, and 3 mm anterolisthesis of L4 on L5. Vertebral body heights are normal. There is moderately decreased disc height at L1-L2, severely decreased disc heig ht at L2-L3 and L3-L4, mildly decreased disc height at L4-L5, and severely decreased disc height at L 5-S1. The following disc levels are specifically discussed: L1-L2: The disc is bulging. There is severe bilateral facet joint osteoarthritis. There is mild right and moderate left neural foraminal stenosis. There is mild central canal stenosis. L2-L3: The disc is bulging. There is severe bilateral facet joint osteoarthritis. There is moderate r ight and mild left neural foraminal stenosis. There is mild central canal stenosis. L3-L4: The disc is bulging. There is severe bilateral facet joint osteoarthritis. There is moderate r ight and mild left neural foraminal stenosis. There is mild central canal stenosis. L4-L5: The disc is bulging. There is severe bilateral facet joint osteoarthritis. There is moderate r ight and mild left neural foraminal stenosis. There is moderate central canal stenosis. L5-S1: The disc is bulging. There is severe bilateral facet joint osteoarthritis. There is mild bilat eral neural foraminal stenosis. There is mild central canal stenosis. IMPRESSION: 1. Severe lumbar spondylosis, stable from 05/08/2021. 2. Lumbar levoscoliosis. Reviewed, dictated and finalized at location A.
== END 2023-09-26 14:22 | disposition home or self-care (01) ==
LOC: ANHIMG 14:22
PROVIDERS: PCP Nurse Practitioner Family; Visit Provider Nurse Practitioner Family
DX: M54.16 Radiculopathy, lumbar region (principal); M47.816 Spondylosis without myelopathy or radiculopathy, lumbar region
CPT/HCPCS: 72131